=== PATIENT | female | born 1935 ===

== ENCOUNTER 2023-06-24 11:33 | Emergency (ER) | payer MEDICARE, SELFPAY ==
[2023-06-24 11:39] VITALS: BP 171/95
--- NOTE | 2023-06-24 12:25 | ED.GENMED ---
History of Present Illness
General
Chief Complaint: Head Injury
Source: patient
Exam Limitations: none
Time Seen by Provider: 06/24/23 11:51
Travel History
Have you had any contact with someone who has COVID-19?: No
Do you have any symptoms of coronavirus? Fever > 100 degrees, chills, cough, shortness of breath, sore throat, loss of taste or smell, muscle aches, or headache?: No
History of Present Illness
History of Present Illness:
See MDM
Past History
Past History
ED Past Medical History: None
ED Past Surgical History: Orthopedic
Social History
Tobacco: Non-smoker
Alcohol: None
Phy Exam
Physical Exam
Physical Exam:
See MDM
Course
Orders/Labs/Results
Orders:
Orders
06/24/23 11:56
CT Facial Bones W/o Iv Contras Urgent
Comment:
Reason For Exam: left facial injury
CT Head W/o Iv Contrast Urgent
Comment:
Reason For Exam: left head trauma
06/24/23 12:36
Fluorescein Sodium [Ful-Christy] 1 mg .ROUTE .STK-MED ONE
Tetracaine HCl [Tetracaine 0.5% Ophthalmic Solution] 1 drop .ROUTE .STK-MED ONE
06/24/23 13:28
Erythromycin (Ilotycin) [Erythromycin 0.5% Ophthalmic Ointment] See Dose Instructions OPHTH NOW STA
Vital Signs
Initial and Last Documented VS:
Initial Vital Signs
Temp Pulse Resp BP Pulse Ox
98.0 F 62 20 171/95 99
06/24/23 11:39 06/24/23 11:39 06/24/23 11:39 06/24/23 11:39 06/24/23 11:39
Last Documented Vital Signs
Temp Pulse Resp BP Pulse Ox
98.0 F 62 20 171/95 99
06/24/23 11:39 06/24/23 11:39 06/24/23 11:39 06/24/23 11:39 06/24/23 11:39
MDM/Problems Addressed
Differential Diagnosis Includes:
HPI and MDM Narrative:
87-year-old female presenting for evaluation of head trauma. Patient was at a soccer game and she was hit in the head with a soccer ball. Patient denies loss of consciousness. Patient arrived to the emergency department with large hematoma to
left forehead. Ice was applied. Patient denies any visual problems. Given age and complaint, will obtain CT head and maxillofacial
Physical exam
General: Well appearing and non-toxic
HEENT: protecting airway. Hematoma to left forehead and left zygomatic arch. Pupils equal reactive. Small abrasion to left skin overlying zygomatic arch.
Neck: Nontender, supple
CV: No evidence of cyanosis
Resp: No accessory muscle use
Abd: Non-distended
Extremities: No deformities
Neuro: alert
Psych: Normal affect
Skin: Intact
Problems Addressed including Acute and Chronic Conditions affecting care:
1. Head injury
Acuity: acute
Prognosis: stable
Details: Will obtain CT to rule out facial fracture versus intracranial hemorrhage
2. Corneal abrasion
Acuity: acute
Prognosis: stable
Details: Small amount of fluorescein uptake to left eye along 9 o'clock position. Negative Mejia sign. Patient started erythromycin ointment
Updates
CT head and facial bones negative. Patient feels comfortable going home
Differential Diagnosis (but not limited to): Concussion, hematoma, facial bone fracture
Testing considered: CT cervical spine but no tenderness elicited
Drug therapy (if applicable): OTC meds, please see d/c instruction regarding Rx drugs
Amount and/or Complexity of Data Reviewed
Clinical info obtained from: Patient
External data reviewed: N/A
Labs I independently reviewed (but not limited to): N/A
Radiology: The CT scan was personally and independently reviewed. In addition, official CT report reviewed.
Pulse Ox: not hypoxic
EKG independently reviewed: N/A
Ruby On Rails Developer: N/A
Critical Care: N/A
Risk of Complication:
Social Determinants of health: Good social support
Discussed with other providers: N/A
Escalation of Care includes Admit/Obs: After being observed in the Emergency Department, pt stable for discharge.
Occasional wrong word or 'sound a like' substitutions may have occurred due to the inherent limitations of voice recognition software. Read the chart carefully and recognize, using context, where substitutions have occurred.
*Critical Care Note
Total Time (30-74mins, 75-104mins- exclusive of procedures): Not Applicable
ED Attending Note
-
Portions of this chart may have been created with voice recognition software.� Occasional wrong word or��sound alike� substitutions may have occurred due to the inherent limitations of voice recognition software.
Discharge Plan
Departure
Patient Disposition: Home (Routine Discharge)
Date of Disposition: 06/24/23
Time of Disposition: 14:33
Patient with high blood pressure during this ER visit?: Yes
Discharge Problem:
Head injury, Corneal abrasion
Instructions: Minor Head Injury (DC), Corneal Abrasion ED, BLOOD PRESSURE
Referrals:
Domenico Thomas MD [Family Provider] -
Activity Restrictions/Additional Instructions:
Please return for any worsening symptoms.
You may return at any time if you have further concerns.
Please follow up with your doctor at the first available appointment, preferably this week.
Please use the eye ointment up to 4 times a day.
Thank you for choosing [facility].
Discharge Date and Time
Print Language: LITHUANIAN
[2023-06-24] MEDS: ERYTHROMYCIN 0.5% OPHTHALMIC OINTMENT 1 APPLIC OPHTH (13:45)
== END 2023-06-24 16:00 | disposition home or self-care (01) ==
LOC: EMR 11:33
PROVIDERS: EMERGENCY PHYSICIAN Student in an Organized Health Care Education/Training Program; FAMILY PHYSICIAN Internal Medicine
DX: S05.00XA Injury of conjunctiva and corneal abrasion without foreign body, unspecified eye, initial encounter (principal); W21.02XA Struck by soccer ball, initial encounter; R03.0 Elevated blood-pressure reading, without diagnosis of hypertension; Z86.73 Personal history of transient ischemic attack (TIA), and cerebral infarction without residual deficits
CPT/HCPCS: 70450; 70486; 99284